=== PATIENT | female | born 1970 | race Caucasian/White ===

== ENCOUNTER 2018-01-21 21:45 | Observation (INO) ==
--- NOTE | 2018-01-21 22:13 | Emergency Department Note ---
Disposition Clinical Impression: Atypical chest pain, Anxiety Disposition: Admitted As Inpatient Condition: Serious Referrals: NONE,PCP [Primary Care Provider] - Time of Disposition: 23:40 General Adult HPI - General Stated complaint: chest pain going into back anxiety Time Seen by Provider: 01/21/18 22:10 Nursing Notes Reviewed: Yes Vital Signs Reviewed: Yes - History of Present Illness HPI Narrative: Patient presents today with CC of: Chest pain. Patient describes issue began around 2 hours ago patient started developing pain in her chest. Patient states the pain in her chest is like a throbbing and also in her upper back. She said she was talking testing on the phone when it started. She says she has been under a lot of stress lately. Patient did not really do anything during the day today she has not had any trauma to the area she does not work or have a job caused her to have the pain. Patient states she has had cough for the last several days and she is smoker. Patient takes Klonopin for anxiety. She does not drink any caffeine. Patient has been urinating normally having regular bowel movements. She had pizza about 3 hours ago. She has not had any fever. She denies hemoptysis leg swelling or tenderness. Patient does have risk factors for cardiac disease including possible family history. Smoking. Hypertension. Patient had a stress test approximately 2 years ago that was normal. All systems ED: reviewed and negative except as stated. Review of Systems: As Per HPI - Related Data Home Medications Medication Instructions Recorded Confirmed ALPRAZolam [Xanax 1 MG Tablet] 1 mg PO TID 05/16/15 11/05/17 Metoprolol Tartrate [Lopressor] 50 mg PO DAILY 08/06/17 11/05/17 Ziprasidone HCl [Geodon] 60 mg PO DAILY 08/06/17 11/05/17 Previous Rx's Medication Instructions Recorded Quetiapine Fumarate [Seroquel Xr] 200 mg PO QPM #20 tab.er.24h 04/12/16 Cyclobenzaprine [Flexeril] 10 mg PO TID PRN #20 tablet 11/05/17 Allergies Allergy/AdvReac Type Severity Reaction Status Date / Time morphine Allergy Rash Verified 09/19/17 11:46 NSAIDS (Non-Steroidal Allergy Rash Verified 09/19/17 11:46 Anti-Inflamma All systems ED: reviewed and negative except as stated. Review of Systems: As Per HPI Past Medical History - Past Medical History Medical history: Reports: GERD, other Surgical history: Reports: appendectomy, (5), cholecystectomy, hysterectomy, orthopedic, other (Carpal tunnel), other (Nasal surgery) Psychiatric history: Reports: anxiety, bipolar, depression, panic disorder DIRECTOR LOAN history: Reports: no DIRECTOR LOAN history - Social History Smoking Status: Current every day smoker Smokeless Tobacco Status: No Alcohol use: Reports: none Drug use: Reports: none Physical Exam I have reviewed initial and available nurse's notes for the patient. The patient 's medications, allergies, and medical history was reviewed. Family, Social & Surg histories were reviewed and are not relevant except as noted above in the history of present illness, or below in the respective specific section. I have reviewed and agree with all vital signs synchronously available in EMR at the time of this dictation. Times documented are the time of computer entry, are not necessarily the time the event occurred. At least 10 systems reviewed with patient or surrogate during physical exam and are otherwise negative. Physical EXAM: General ~ Constitutional: Conscious & cooperative , generally healthy appearance Head: NCAT Eyes: Sclera white , conjunctiva clear , PERRL, non-icteric ENT : L Tympanic membrane normal color and landmarks R Tympanic membrane normal color and landmarks Canals are clear without significant drainage , no obstruction or vesicles , pinna and tragus non tender Nose with pink nasal mucosa, nares patent, non tender without bleeding Mouth - mucous membrane moist , pink , no lesions , no trismus Neck - no masses , supple , no cervical spinous process tenderness Pharynx - no exudate , no petechia or obvious lesions , no airway obstruction or stridor Hematologic ~ Lymphatic ~ Immunologic: Lymphadenopathy normal , no petechia , Skin color, nails and pulses unremarkable. Heart ~ Chest: Reg rate , nml Rhythm , nl S1/S2 , no MRG Lungs: Breath sounds equal , clear to auscultation bilaterally , no wheezing, no rales or rhonchi , no CVA tenderness Gastrointestinal ~ Abd: Soft & non tender , BS + in 4 quads , No HSM or masses , no peritoneal signs GenitoUrinary: Deferred Musculoskeletal ~ Back ~ Extremities: Warm and w/o clubbing , cyanosis , or edema. No point tenderness , good ROM of major joints Neurologic: Cranial nerves grossly intact, good muscle strength , attention good , cooperative , Alert and oriented x4 Psychiatric: Calm , Insight and mood appropriate , Skin: No rashes , good skin turgor , cap refill 2-3 seconds , warm and dry Course Vital Signs Temperature 99.7 F H 01/21/18 22:00 Pulse Rate 97 01/21/18 22:00 Respiratory Rate 18 01/21/18 22:00 Blood Pressure 129/83 01/21/18 22:00 O2 Sat by Pulse Oximetry 95 01/21/18 22:00 Temperature 99.7 F H 01/21/18 22:00 Pulse Rate 91 01/21/18 23:36 Respiratory Rate 18 01/21/18 22:00 Blood Pressure 120/78 01/21/18 23:36 O2 Sat by Pulse Oximetry 94 01/21/18 23:36 Oxygen Delivery Oxygen Delivery Room Air Medical Decision Making - MDM Narrative Medical decision making narrative: MDM: History and physical exam is consistent with - atypical CP DDx included multiple etiologies for the symptoms such as - atypical CP, ACS, Pneumonia, pneumothorax, Gerd, AAA, PE XRAYS: No Acute CP disease Critical Care: None Condition and evaluation here was discussed in detail. Labwork, and test results were reviewed with the patient. The patient's EKG was relatively unremarkable and her labwork was as well. I talked to patient about being admitted to the hospital and she was agreeable to being admitted to the hospital here did not want to go to [place]. She said she has been under a lot of stress and she thinks that is why he was having the chest pain tonight. She still having some pain now in spite of the nitroglycerin. She did no take asa today. I discussed patient detail with Dr. Euceda patient admitted to the hospital for further evaluation and observation. I think the patient ultimately will require a stress test but not necessarily during this admission. - Lab Data Result diagrams: 01/21/18 22:20 01/21/18 22:20 Lab Results 01/21/18 01/21/18 01/21/18 Range/Units 22:20 22:20 22:20 WBC 8.5 (4.3-11.1) K/mcL RBC 3.94 (3.82-4.97) M/mcL Hgb 12.2 (11.5-15.4) g/dL Hct 36.2 (35.3-44.9) % MCV 91.9 (83.0-100.0) fL MCH 31.0 (28.0-33.3) pg MCHC 33.7 (31.6-35.5) g/dL RDW 14.0 (11.5-14.5) % Plt Count 425 H (140-400) K/mcL MPV 8.4 L (9.4-12.4) fL Immature Gran % 0.5 (0-4) % Seg Neutrophils % 53.9 % Lymphocytes % 34.5 % Monocytes % 8.2 % Eosinophils % 2.1 % Basophils % 0.8 % Neutrophils # 4.6 (1.6-8.9) K/mcL Lymphocytes # 2.9 (0.6-4.6) K/mcL Monocytes # 0.7 (0.0-1.3) K/mcL Eosinophils # 0.2 (0.0-0.6) K/mcL Basophils # 0.1 (0.0-0.2) K/mcL D-Dimer < 155 (0-500) ng/mLFEU Sodium 140 (136-145) mEq/L Potassium 3.7 (3.5-5.1) mEq/L Chloride 107 (98-107) mEq/L Carbon Dioxide 24 (23-29) mEq/L BUN 20 (6-20) mg/dL Creatinine 0.71 (0.60-1.20) mg/dL Est GFR ( Amer) > 60 (> 60) Est GFR (Non-Af Amer) > 60 (> 60) BUN/Creatinine Ratio 28 H (6-26) Glucose 100 (70-105) mg/dL Calculated Osmolality 293 (280-300) Calcium 9.6 (8.6-10.3) mg/dL Troponin I (< 0.04) ng/mL 01/21/18 Range/Units 22:20 WBC (4.3-11.1) K/mcL RBC (3.82-4.97) M/mcL Hgb (11.5-15.4) g/dL Hct (35.3-44.9) % MCV (83.0-100.0) fL MCH (28.0-33.3) pg MCHC (31.6-35.5) g/dL RDW (11.5-14.5) % Plt Count (140-400) K/mcL MPV (9.4-12.4) fL Immature Gran % (0-4) % Seg Neutrophils % % Lymphocytes % % Monocytes % % Eosinophils % % Basophils % % Neutrophils # (1.6-8.9) K/mcL Lymphocytes # (0.6-4.6) K/mcL Monocytes # (0.0-1.3) K/mcL Eosinophils # (0.0-0.6) K/mcL Basophils # (0.0-0.2) K/mcL D-Dimer (0-500) ng/mLFEU Sodium (136-145) mEq/L Potassium (3.5-5.1) mEq/L Chloride (98-107) mEq/L Carbon Dioxide (23-29) mEq/L BUN (6-20) mg/dL Creatinine (0.60-1.20) mg/dL Est GFR ( Amer) (> 60) Est GFR (Non-Af Amer) (> 60) BUN/Creatinine Ratio (6-26) Glucose (70-105) mg/dL Calculated Osmolality (280-300) Calcium (8.6-10.3) mg/dL Troponin I < 0.03 (< 0.04) ng/mL - EKG Data EKG #1 EKG results narrative: nrml=0 EKG interpretation Rhythm - sinus tach Rate - 102 [place] - 143 QRS - 85 QTC - 369 ST-T waves - no specific ST and T-wave changes Injury pattern - no acute injury pattern HEART SCORE : H=1 E=0 A=1 R=2 T=0 HEART Score: H= Suspiciousness: High=2, mod=1, min=0 E= EKG: Significant ST=2, nonspecific repol=1, normal=0 A= Age: >65 =2, 45-65=1, ,45=0 R= Risk Factors: >3 RF or hx of ASVD=2, 1-2 RF=1, 0 RF=0 smoker, Lipids, HTN, diabetes mellitus, + family history, obesity, T= Troponin: >3xnrml=2, 1-3Xnrml=1, <nrml=0
[2018-01-21] MEDS ORDERED: Nitroglycerin 1 INCH/GM PACKET TP ONE (22:18)
[2018-01-21 22:28] LABS: Basophils # 0.1 K/mcL (0.0-0.2); Basophils % 0.8 %; Eosinophils # 0.2 K/mcL (0.0-0.6); Eosinophils % 2.1 %; Hematocrit 36.2 % (35.3-44.9); Hemoglobin 12.2 g/dL (11.5-15.4); Immature Granulocytes % 0.5 % (0-4); Lymphocytes # 2.9 K/mcL (0.6-4.6); Lymphocytes % 34.5 %; Mean Corpuscular HGB Conc 33.7 g/dL (31.6-35.5); Mean Corpuscular Volume 91.9 fL (83.0-100.0); Mean Platelet Volume 8.4 fL (9.4-12.4); Monocytes # 0.7 K/mcL (0.0-1.3); Monocytes % 8.2 %; Neutrophils # 4.6 K/mcL (1.6-8.9); Platelet Count 425 K/mcL (140-400); Red Blood Count 3.94 M/mcL (3.82-4.97); Segmented Neutrophils % 53.9 %
[2018-01-21] MEDS ORDERED: 0.9 % Sodium Chloride 1,000 ML IVC SCH (22:30)
[2018-01-21 22:46] LABS: BUN/Creatinine Ratio 28 (6-26); Blood Urea Nitrogen 20 mg/dL (6-20); Calcium 9.6 mg/dL (8.6-10.3); Carbon Dioxide 24 mEq/L (23-29); Chloride 107 mEq/L (98-107); Glucose 100 mg/dL (70-105); Osmolality,Calculated 293 (280-300); Potassium 3.7 mEq/L (3.5-5.1); Sodium 140 mEq/L (136-145); eGFR For African Americans > 60 (> 60); eGFR For Non-African Americans > 60 (> 60)
[2018-01-21] MEDS ORDERED: Aspirin 81 MG TAB.CHEW PO STA (23:42)
[2018-01-22] MEDS ORDERED: Naloxone 0.4 MG/ML INJ IVP PRN (00:59)
[2018-01-22] MEDS: Acetaminophen 325 MG TABLET PO PRN ×2 (02:02→08:46)
[2018-01-22] MEDS: 0.9 % Sodium Chloride 1,000 ML IVC SCH ×3 (06:38→13:29)
--- NOTE | 2018-01-22 06:41 | Electrocardiograph Report ---
[place] [address] Test Date: 2018-01-21 Pat Name: Susan Barber Department: 2000 Room: 116 Gender: F Freezer Assistant: : 1970 Requested By: Mike Magana Order Number: [id number] Reading MD: Ramin Coello Measurements Intervals [place] Rate: 102 P: 60 KS: 143 QRS: 73 QRSD: 85 T: 46 QT: 310 QTc: 369 Interpretive Statements SINUS TACHYCARDIA Electronically Signed On 01-22-2018 6:39:55 EDT by Ramin Coello
[2018-01-22 07:04] LABS: Basophils # 0.1 K/mcL (0.0-0.2); Eosinophils # 0.2 K/mcL (0.0-0.6); Eosinophils % 3.4 %; Hematocrit 32.6 % (35.3-44.9); Hemoglobin 11.1 g/dL (11.5-15.4); Immature Granulocytes % 0.3 % (0-4); Lymphocytes # 2.6 K/mcL (0.6-4.6); Lymphocytes % 44.3 %; Mean Corpuscular Hemoglobin 31.5 pg (28.0-33.3); Mean Corpuscular Volume 92.6 fL (83.0-100.0); Mean Platelet Volume 8.2 fL (9.4-12.4); Monocytes # 0.5 K/mcL (0.0-1.3); Monocytes % 7.7 %; Neutrophils # 2.5 K/mcL (1.6-8.9); Platelet Count 337 K/mcL (140-400); Red Blood Count 3.52 M/mcL (3.82-4.97); Red Cell Distribution Width 13.9 % (11.5-14.5); Segmented Neutrophils % 43.3 %
[2018-01-22 07:39] LABS: BUN/Creatinine Ratio 31 (6-26); Blood Urea Nitrogen 15 mg/dL (6-20); Calcium 9.1 mg/dL (8.6-10.3); Carbon Dioxide 24 mEq/L (23-29); Chloride 107 mEq/L (98-107); Glucose 81 mg/dL (70-105); Osmolality,Calculated 286 (280-300); Potassium 3.4 mEq/L (3.5-5.1); Sodium 138 mEq/L (136-145); eGFR For African Americans > 60 (> 60); eGFR For Non-African Americans > 60 (> 60)
--- NOTE | 2018-01-22 08:16 | Internal Med History&Physical ---
Date of Encounter: 01/22/18 Time of Encounter: 08:10 Assessment and Plan (1) Atypical chest pain Current visit: Yes Status: Acute Patient presented with complaints of chest pain with radiation to her midback. Patient continues to complain of mid back pain this morning, but greatly diminished since yesterday. Also complains of headache, but noted to have nitro paste on. Patient denies any chest discomforts or palpitations. Denies any nausea, fever or chills. Patient's had troponins 2 negative. Troponin #3 pending. Initial EKG showed no ischemic changes. This morning's EKG did show flipped T waves in lateral leads. monitoring tech showed sinus rhythm without any ectopy. Vital signs stable. We will continue to monitor. We will discuss with Dr. Euceda (2) Tobacco abuse Current visit: Yes Status: Acute No issues at this time. Advised to stop smoking due to her current health condition. Patient states understanding (3) Anxiety Current visit: Yes Status: Acute Patient currently appears relaxed, noted to have a flat affect type position during interview. Patient known to be gone through a divorce. We will continue with current plan of care. Internal Medicine - H&P: HPI Chief complaint: chest pain Admitted From: Home Plans for Post Hospital Care: Home History of present illness: Ms. Barber is a 47 year old female was admission through the emergency department yesterday, during which she presented with complaints of chest pain that began several hours prior to arrival. Patient describes pain as a substernal throbbing, which radiates to her back. Patient states that her pain was resolved during her stay in the emergency department, but this morning states that she again has a pain to her her back and a headache. Patient noted to have nitro paste on. Patient appears relaxed and denies any dyspnea or any other discomforts. Denies fever or chills. Denies productive cough. Denies nausea. Patient does have risk factors for cardiac disease including possible family history, smoking and hypertension. Patient had a stress test approximately 2 years ago that was normal. Patient does have stressful issues at home due to an ongoing divorce. Patient has had troponins 2 which have been negative. Initial EKG showed no ischemic changes, but this morning's EKG did show some flipped T's in lateral leads. Labs are reviewed which shows no acute issues. Lungs are CTA. Past Med Surg Social Fam HX - Past Medical History Medical history: atrial fibrillation, GERD, hypertension, migraine Additional medical history: IRREGULAR HEARTBEAT Psychiatric history: anxiety, bipolar, depression, panic disorder - Past Surgical History Surgical History: appendectomy, , cholecystectomy, hysterectomy, orthopedic, other, other Additional surgical history: Carpal Tunnel Right Hand, Sinus surgery - Social History Smoking Status: Current every day smoker Packs per day: 1 Smokeless Tobacco Status: No Alcohol use: none Drug use: none - Family History Mother Living Status: Still Living Hx Family Cardiac Disorders: Yes Hx Family Cancer: Yes Father Living Status: Hx Family Cancer: Yes Internal Medicine - H&P: Meds Metoprolol Tartrate [Lopressor] 25 mg PO BID 08/06/17 [History] Ziprasidone HCl [Geodon] 60 mg PO DAILY 08/06/17 [History] Aspirin [Lo-Dose Aspirin EC] 81 mg PO DAILY 01/22/18 [History] Cetirizine HCl [Zyrtec] 10 mg PO DAILY 01/22/18 [History] Quetiapine Fumarate [Seroquel Xr] 100 mg PO QPM 01/22/18 [History] clonazePAM [Klonopin] 1 mg PO QID 01/22/18 [History] hydroCHLOROthiazide [Hydrochlorothiazide] 12.5 mg PO DAILY 01/22/18 [History] 3 Allergy/AdvReac Type Severity Reaction Status Date / Time morphine Allergy Rash Verified 01/22/18 00:52 NSAIDS (Non-Steroidal Allergy Rash Verified 01/22/18 00:52 Anti-Inflamma All Systems PM: A 10-system review of systems was performed and is negative for pertinent findings except as documented above in the HPI. - Constitutional Constitutional: as per HPI, no chills, no fever(s), no night sweats - EENT Eyes: no change in vision, no discharge, no pain, no photophobia Ears: no ear discharge, no ear pain, no tinnitus Nose, mouth and throat: no dysphagia, no nasal discharge, no neck pain, no sore throat - Cardiovascular Cardiovascular ROS IM: as per HPI, no chest pain, no diaphoresis, no dyspnea, no lightheadedness, no palpitations, no syncope - Respiratory Respiratory: as per HPI, no cough, no dyspnea, no wheezing, no excessive phlegm production - Gastrointestinal Gastrointestinal: as per HPI, no abdominal pain, no diarrhea, no hematemesis, no hematochezia, no melena, no nausea, no vomiting - Genitourinary Genitourinary: no change in urinary stream, no dysuria, no flank pain, no hematuria - Musculoskeletal Musculoskeletal ROS IM: as per HPI, no numbness, no tingling - Integumentary Integumentary IM: no rash, no unusual bruising - Neurological Neurological ROS: no confusion, no convulsions, no focal weakness, no numbness, no tingling, no tremor(s) - Hematologic/Lymphatic Hematologic/Lymphatic: no easy bruising - Constitutional Vitals: Temp Pulse Resp BP Pulse Ox 97.3 F L 84 16 95/64 94 01/22/18 04:32 01/22/18 04:32 01/22/18 04:32 01/22/18 04:32 01/22/18 04:32 General appearance: Present: A&O X 3, pleasant - Head Head exam: Present: atraumatic, normocephalic - Eye Eye exam: Present: PERRL, conjuntiva pink, sclera anicteric Pupils: Present: PERRL - Neck Neck exam general surgery: Present: supple, trachea midline. Absent: lymphadenopathy - Respiratory Respiratory exam: Present: CTAB. Absent: accessory muscle use, rales, rhonchi, wheezes - Cardiovascular Cardiovascular exam: Present: RRR, +S1, +S2. Absent: diastolic murmur, gallop, rubs, systolic murmur - GI/Abdominal GI/Abdominal exam: Present: normal bowel sounds, soft, no peritoneal signs. Absent: distended, tenderness - Extremities Exam Extremities exam: Present: warm, radial pulses palpable and symmetrical. Absent : calf tenderness, cyanotic, pedal edema - Neurological Exam Neurological exam: Present: CN II-XII intact, oriented X3, no focal deficits. Absent: pronater drift, facial droop, speech deficit - Skin Skin exam: Present: dry, intact Internal Med - H&P Results - Labs CBC & Chem 7: 01/22/18 06:56 01/22/18 06:56 Labs: Short CBC 01/22/18 Range/Units 06:56 WBC 5.9 (4.3-11.1) K/mcL Hgb 11.1 L (11.5-15.4) g/dL Hct 32.6 L (35.3-44.9) % Plt Count 337 (140-400) K/mcL Neutrophils # 2.5 (1.6-8.9) K/mcL BMP 01/22/18 06:56 Sodium 138 Potassium 3.4 L Chloride 107 Carbon Dioxide 24 BUN 15 Creatinine 0.49 L Glucose 81 Calcium 9.1 Cardiac Enzymes 01/22/18 01/22/18 Range/Units 02:20 06:56 Troponin I < 0.03 < 0.03 (< 0.04) ng/mL - Impressions ITS Impressions Chest X-Ray 01/22/18 00:59 IMPRESSION: Mild bibasilar atelectasis. No focal consolidation. D/ / Sima Jiang MD / Sima Jiang MD Interpreting Provider: Sima Jiang MD - VTE Documentation of Mechanical Device: Intermittent pneumatic compression device
[2018-01-22] MEDS ORDERED: clonazePAM 1 MG TABLET PO SCH ×2 (09:00→13:00)
[2018-01-22] MEDS ORDERED: ALPRAZolam 1 MG TABLET PO SCH (09:00)
[2018-01-22] MEDS ORDERED: Ziprasidone 20 MG CAPSULE PO SCH (09:00)
[2018-01-22 10:43] LABS: Amylase 28 Units/L (29-103); Lipase 14 Units/L (11-82)
[2018-01-22 12:17] VITALS: BP 92/65
--- NOTE | 2018-01-22 13:59 | Discharge Summary ---
Date of Encounter: 01/22/18 Time of Encounter: 13:57 - Discharge Diagnosis (1) Atypical chest pain Priority: Primary Status: Acute Comments: Patient was admitted under observation for rule out MT due to presenting in ER with chest pain. No EKG and serial troponins have been negative Patient denies any chest pain since admission. Patient with follow-up on February 09 with PCP. Patient will with existing consult to cardiology with appointment on March 05 for evaluation of atrial fibrillation. Patient has been on pvc monitor for 24 hours which shows sinus rhythm without ectopy. Patient instructed on her need to continue with the arranged follow-up appointments. Patient's potassium was 3.4 on admission, which she was treated with oral potassium this morning. Patient will be given a prescription for supplemental potassium upon discharge (2) Tobacco abuse Priority: Secondary Status: Chronic Comments: Patient education given on the for her to discontinue tobacco use. Patient states understanding. (3) Anxiety Priority: Secondary Status: Chronic Comments: No acute issues during her admission. Patient appears relaxed. Patient to continue with home medications after discharge. (4) Bipolar 1 disorder Priority: Secondary Status: Chronic Comments: Patient appears relaxed and currently denies any discomforts. No behavior issues during admission. Patient continues with flat affect. Patient to continue with psychiatric medications after discharge Hospital course: Ms. Barber is a 47 year old female presented to the emergency department yesterday with complaints of chest pain with radiation the mid back. Patient was treated in emergency department and was admitted for observation overnight to rule out MT. Patient states that her pain was resolved in ER and denies any further chest discomforts. Patient had stated that she has had a stressful events at home which includes a divorce. Patient was kept overnight with serial EKG and serial troponins obtained which were all negative. Patient denies any chest discomforts or palpitations since her admission. Denies any dyspnea or productive cough. Is given supplemental potassium during her admission for a potassium of 3.4. A prescription will be provided at discharge for potassium. Patient states that she has a point with PCP on February 09 and has an existing consult for cardiology with an appointment on March 05 which she is to see him for possible atrial fibrillation. Patient has been on pvc monitor for overnight with sinus rhythm with without ectopy shown. Patient has had 3 EKGs obtained with all showing sinus rhythm without ectopy. Patient will be discharged home with instruction to continue with her home medications. Discharge discussed with: patient Time spent discussing smoking cessation with patient: 3 to 10 minutes - Time Spent with Patient Total time spent providing and/or coordinating discharge services: Less than 30 minutes - Discharge Medications Home Medications: Metoprolol Tartrate [Lopressor] 25 mg PO BID 08/06/17 [History] Ziprasidone HCl [Geodon] 60 mg PO DAILY 08/06/17 [History] Aspirin [Lo-Dose Aspirin EC] 81 mg PO DAILY 01/22/18 [History] Cetirizine HCl [Zyrtec] 10 mg PO DAILY 01/22/18 [History] Quetiapine Fumarate [Seroquel Xr] 100 mg PO QPM 01/22/18 [History] clonazePAM [Klonopin] 1 mg PO QID 01/22/18 [History] hydroCHLOROthiazide [Hydrochlorothiazide] 12.5 mg PO DAILY 01/22/18 [History] Allergies/Adverse Reactions: 3 Allergy/AdvReac Type Severity Reaction Status Date / Time morphine Allergy Rash Verified 01/22/18 00:52 NSAIDS (Non-Steroidal Allergy Rash Verified 01/22/18 00:52 Anti-Inflamma Date of admission: 01/22/18 00:06 Primary care physician: PCP NONE Discharging clinician: Beto Euceda Anticipated date of discharge: 01/22/18 - Constitutional Vitals: Temp Pulse Resp BP Pulse Ox 97.7 F 88 14 92/65 96 01/22/18 12:15 01/22/18 12:15 01/22/18 12:15 01/22/18 12:15 01/22/18 12:15 General appearance: Present: A&O X 3, pleasant - Head Head exam: Present: atraumatic, normocephalic - Eye Eye exam: Present: PERRL, conjuntiva pink, sclera anicteric Pupils: Present: PERRL - Neck Neck exam general surgery: Present: supple, trachea midline. Absent: lymphadenopathy - Respiratory Respiratory exam: Present: CTAB. Absent: accessory muscle use, rales, rhonchi, wheezes - Cardiovascular Cardiovascular exam: Present: RRR, +S1, +S2. Absent: diastolic murmur, gallop, rubs, systolic murmur - GI/Abdominal GI/Abdominal exam: Present: normal bowel sounds, soft, no peritoneal signs. Absent: distended, tenderness - Extremities Exam Extremities exam: Present: warm, radial pulses palpable and symmetrical. Absent : calf tenderness, cyanotic, pedal edema - Neurological Exam Neurological exam: Present: CN II-XII intact, oriented X3, no focal deficits. Absent: pronater drift, facial droop, speech deficit - Skin Skin exam: Present: dry, intact - Patient Status Disposition: Home, Self-Care Condition: Good Functional capacity at discharge: independent ambulation Overall status at discharge: patient is progressing back to baseline - Discharge Instructions Forms: ED Satisfaction Letter - Diet and Activity Activity: increase activity as tolerated Diet: low fat, low cholesterol, low salt diet - VTE Documentation of Mechanical Device: Intermittent pneumatic compression device
--- NOTE | 2018-01-22 19:59 | Electrocardiograph Report ---
[address] [address] Test Date: 2018-01-22 Pat Name: Susan Barber Department: 2001 Room: 116 Gender: F Paper Pattern Folder: Tlc : 1970 Requested By: Mike Magana Order Number: [id number] Reading MD: Ramin Coello Measurements Intervals [place] Rate: 72 P: 44 IA: 133 QRS: 55 QRSD: 91 T: 50 QT: 397 QTc: 422 Interpretive Statements SINUS RHYTHM Electronically Signed On 01-22-2018 19:57:36 EDT by Ramin Coello
--- NOTE | 2018-01-22 20:03 | Electrocardiograph Report ---
[place] [address] Test Date: 2018-01-22 Pat Name: Susan Barber Department: 2000 Room: 116 Gender: F Actuarial Consultant: : 1970 Requested By: Beto Euceda Order Number: [id number] Reading MD: Ramin Coello Measurements Intervals [place] Rate: 81 P: 51 [place]: 138 QRS: 74 QRSD: 88 T: 65 QT: 366 QTc: 404 Interpretive Statements SINUS RHYTHM Electronically Signed On 01-22-2018 20:01:58 EDT by Ramin Coello
== END 2018-01-22 14:28 | disposition home or self-care (01) ==
LOC: EMEROOGRE 21:45 → INPGRE 21:45